=== PATIENT | female | born 1995 | race Caucasian/White ===

== ENCOUNTER 2019-05-14 11:10 | Emergency (ER) | payer MEDICAID ==
--- NOTE | 2019-05-14 11:11 | EDM.PDOC ---
ED HPI GENERAL MEDICAL PROBLEM - General Chief Complaint: Headache Stated Complaint: Recurrent migraine headache, recurrent syncopal episodes Time Seen by Provider: 05/14/19 11:11 Source of Information: Reports: Patient, Family (Boyfriend, Diego), Other ( [facility]). Denies: Old Records (No [facility] records available) History Limitations: Reports: Altered Mental Status - History of Present Illness INITIAL COMMENTS - FREE TEXT/NARRATIVE: The patient drove herself to this facility via private automobile for evaluation of an apparent syncopal episode, which occurred at home earlier this morning, although patient is a somewhat poor historian secondary to her current mental and emotional dental status. She apparently initially tried to be seen in the [facility] in [place] earlier this morning at about 10:30 a.m., although clinic was closed at that time. The patient was entering this facility at about 11 AM when she had another true witnessed syncopal episode with the patient caught by one of our staff in the waiting room with no fall or significant injury to this point. The patient does have a known history of chronic intermittent migraine headaches with patient stating that her initial headache was throbbing in nature mostly in the right frontal and temporal region and associated with bilateral retro-ocular discomfort with this headache starting about 2 days ago. Note that the patient did take 2000 mg of Tylenol at 9 AM yesterday with no other medications since that time. She also has an apparent history of recurrent syncope and chronic dizziness of unknown etiology , however note Mnire's disease history as below. She has not had a workup for her chronic headaches or recurrent syncope to this point, although a complete history was not possible during today's evaluation secondary to her symptoms, hearing loss, etc. The patient denies any chest pain/pressure, heart flutter, dizziness, orthostasis, orthopnea, diaphoresis, paresthesias, recent decreased exercise tolerance, or any other anginal-type symptoms. No recent history of abdominal pain, heartburn, nausea, diarrhea, melena, gross hematochezia, or any food intolerance, including fatty foods, etc.. The patient also denies any recent fever, cough, wheezing, dyspnea, etc.. Onset: Unknown/Unsure Onset Date: 05/14/19 Onset Time: 11:00 Duration: Improving Location: Reports: Head (Right-sided headache as above). Denies: Face, Neck, Chest, Abdomen, Back, Upper Extremity, Left, Upper Extremity, Right, Radiates to Quality: Reports: Same as Previous Episode, Throbbing Severity: Moderate Improves with: Reports: None Worsens with: Reports: None Context: Reports: Other (As above). Denies: Sick Contact, Trauma Associated Symptoms: Reports: Confusion (Initial), Headaches, Malaise, Syncope, Weakness (Left-sided as below). Denies: Chest Pain, Cough, Diaphoresis, Fever/ Chills, Loss of Appetite, Nausea/Vomiting, Rash, Seizure, Shortness of Breath Treatments GLASS SILVERER: Reports: Acetaminophen (Yesterday as above) Right Frontal Headache Pain Score (Numeric/FACES): 8 - Related Data Allergies Allergy/AdvReac Type Severity Reaction Status Date / Time No Known Allergies Allergy Verified 05/14/19 11:52 Past Medical History HEENT History: Reports: Hard of Hearing, Other (See Below) Other HEENT History: Left-sided Mnire's disease and hearing loss requiring cochlear implant. Cardiovascular History: Reports: Syncope, Other (See Below). Denies: Hypertension Other Cardiovascular History: Recurrent syncope of unknown etiology with no workup to this point. VOCATIONAL EDUCATION PROFESSIONAL History: Reports: , Spontaneous : 2 Para: 1 LMP (Approximate): Other (See Below) Other VOCATIONAL EDUCATION PROFESSIONAL History: Three-month premature delivery by normal spontaneous vaginal delivery. Previous history of spontaneous SAB at about 10 weeks gestation with no D&C required. No problems with hypertension, hyperglycemia, etc. during her pregnancies. Neurological History: Reports: Headaches, Chronic, Migraines, Vertigo, Other ( See Below). Denies: Seizure Other Neuro History: Mnire's disease with left-sided hearing loss and chronic vertigo and dizziness Psychiatric History: Reports: Anxiety, Depression, Suicidal Ideation, Other ( See Below). Denies: Psych Hospitalization(s), Suicide Attempt Other Psychiatric History: History of suicidal ideation in the distant past with no inpatient treatment required. Endocrine/Metabolic History: Reports: Other (See Below). Denies: Diabetes, Gestational, Diabetes, Type I, Diabetes, Type II, Diabetes Mellitus, Type 3c, Hypothyroidism, IDDM - Past Surgical History Head Surgeries/Procedures: Reports: Other (See Below) Other Head Surgeries/Procedures: Cochlear implant as below HEENT Surgical History: Reports: Other (See Below) Other HEENT Surgeries/Procedures: Left-sided Sided cochlear implant Neurological Surgical History: Reports: Other (See Below) Other Neurological Surgeries/Procedures: Cochlear implant as above - History Comment History Comment: Secondary to current symptoms, initial confusion, etc. limited history and physical was available. Social & Family History - Family History HEENT: Reports: Hearing Impairment, Other (See Below) Other HEENT Family History: Son with possible congenital hearing loss with history of 3 month premature delivery. - Tobacco Use Smoking Status *Q: Current Every Day Smoker Tobacco Use Within Last Twelve Months: Cigarettes Years of Tobacco use: 7 Packs/Tins Daily: 1 Used Tobacco, but Quit: No Smoking Cessation Information Provided To Patient: No (Patient transferred) Smoking Cessation Information Given Comment: Significant other Second Hand Smoke Exposure: Yes Second Hand Smoke Education Provided: No (Patient transferred) - Alcohol Use Alcohol Use History: Yes Days Per Week of Alcohol Use: 7 Number of Drinks Per Day: 1 Number of Drinks Per Day Comment: Usually mixed drinks. No previous DWIs, problems with alcohol abuse, etc. Total Drinks Per Week: 7 Alcohol Use in Last Twelve Months: Yes Alcohol Use Frequency: Daily - Recreational Drug Use Recreational Drug Use: No Drug Use in Last 12 Months: No Recreational Drug Type: Denies: Amphetamines (Speed), Cocaine, Heroin, Inhalants (Glues, Solvents, Aerosols), LSD (Acid), Marijuana/Hashish, Methamphetamine, Morphine, Oxycodone - Living Situation & Occupation Living situation: Reports: with Significant Other (Significant other and her son ) ED ROS GENERAL - Review of Systems Review Of Systems: ROS reveals no pertinent complaints other than HPI. - Physical Exam Exam: See Below Exam Limited By: Altered Mental Status General Appearance: No Apparent Distress, Anxious (Moderate), Lethargic Eye Exam: Bilateral Eye: EOMI, Normal Fundi, Normal Inspection (No nystagmus), PERRL Ears: Normal Canal, Normal TMs, Hearing Loss (Severe bilateral hearing loss left greater than right with left-sided cochlear implant) Nose: Normal Inspection, Normal Mucosa, No Blood Throat/Mouth: Normal Inspection, Normal Lips, Normal Teeth, Normal Gums, Normal Oropharynx, Normal Voice, No Airway Compromise. No: Dysphagia, Evidence of Tongue Biting, Perioral Cyanosis Head Exam: Atraumatic, Normocephalic. No: Facial Swelling, Facial Tenderness, Sinus Tenderness Neck: Normal Inspection, Supple, Non-Tender, Full Range of Motion. No: Carotid Bruit, Lymphadenopathy (L), Lymphadenopathy (R), Thyromegaly Respiratory/Chest: No Respiratory Distress, Lungs Clear, Normal Breath Sounds, No Accessory Muscle Use, Chest Non-Tender. No: Pleural Rub, Retractions Cardiovascular: Normal Peripheral Pulses, Regular Rate, Rhythm, No Edema, No Gallop, No JVD, No Murmur, No Rub. No: Gallop/S3, Gallop/S4, Friction Rub GI/Abdominal: Normal Bowel Sounds, Soft, Non-Tender, No Organomegaly, No Distention, No Abnormal Bruit, No Mass, Pelvis Stable. No: Guarding (Female) Exam: Deferred Rectal (Female) Exam: Deferred Neuro Exam (Abbreviated): Confused (Initial moderate confusion with patient oriented only to the year and her name with no confusion at time of transfer), Disoriented (As above), Slow to Respond, Sensory/Motor Deficit (Mild to moderate possible left sided arm and leg weakness with difficulty with grocery caddy, dorsiflexion, etc. with negative Babinski's and no facial involvement). No: Abnormal Reflexes (Negative Babinski's) Back Exam: Normal Inspection, Full Range of Motion. No: CVA Tenderness (L), CVA Tenderness (R), Muscle Spasm Extremities: Normal Inspection. No: Anthony's Sign Psychiatric: Anxious (Moderate), Depressed Mood (Moderate with adequate eye contact), Flat Affect. No: Tearful Skin Exam: Warm, Dry, Intact, Normal Color, No Rash. No: Diaphoretic, Ecchymosis, Petechiae, Wound/Incision EKG INTERPRETATION EKG Date: 05/14/19 Time: 11:20 Rhythm: NSR Rate (Beats/Min): 78 [place]: Normal P-Wave: Present QRS: Normal (0.09 seconds) ST-T: Normal (Nonspecific ST changes in leads 3 and aVF with T-wave inversion in lead V1) QT: Normal AR/PQ Interval: 0.17 seconds with pulmonary hypertension by EKG Comparison: NA - No Prior EKG EKG Interpretation Comments: 1. No acute ischemic changes 2. Pulmonary hypertension by EKG. Course - Vital Signs Last Recorded V/S: See Stroke Code Sheet - Orders/Labs/Meds Orders: Active Orders 24 hr Category Date Time Status Blood Glucose Check, Bedside [RC] STAT Care 05/14/19 11:12 Active Cardiac Monitoring [RC] STAT Care 05/14/19 11:12 Active EKG Documentation Completion [RC] ASDIRECTED Care 05/14/19 11:12 Active NIH Stroke Scale [RC] ASDIRECTED Care 05/14/19 11:12 Active Oxygen Therapy, ED [RC] CONTINUOUS Care 05/14/19 11:12 Active Peripheral IV Care [RC] . DIRECTED Care 05/14/19 11:12 Active Pulse Oximetry [RC] CONTINUOUS Care 05/14/19 11:12 Active Up With Assistance [RC] ASDIRECTED Care 05/14/19 11:12 Active Vital Signs [RC] PFP Care 05/14/19 11:12 Active Nothing per Oral Now Diet [DIET] Diet 05/14/19 Breakfast Active Chest 1V Frontal [CR] Stat Exams 05/14/19 11:12 Taken Head wo Cont [CT] Stat Exams 05/14/19 11:12 Taken DRUG SCREEN, URINE [URCHEM] Stat Lab 05/14/19 11:16 Ordered PROLACTIN [REF] Stat Lab 05/14/19 11:20 Received UA W/MICROSCOPIC [URIN] Stat Lab 05/14/19 11:12 Ordered Sodium Chloride 0.9% [Saline Flush] Med 05/14/19 11:12 Active 10 ml FLUSH ASDIRECTED PRN Obtain Past Medical Record [OM.PC] Stat Oth 05/14/19 11:12 Active Peripheral IV Insertion Adult [OM.PC] Stat Oth 05/14/19 11:12 Ordered Resuscitation Status Stat Resus Stat 05/14/19 11:12 Ordered Medication Orders Sodium Chloride (Saline Flush) 10 ml FLUSH ASDIRECTED PRN PRN Reason: Keep Vein Open Labs: Laboratory Tests 05/14/19 05/14/19 05/14/19 Range/Units 11:20 11:20 11:20 WBC 7.4 (4.0-10.2) K/uL RBC 4.72 (3.77-5.09) M/uL Hgb 14.1 (11.7-15.5) g/dL Hct 41.9 (34.0-46.0) % MCV 88.8 (84.0-98.0) fL MCH 29.9 (28.2-33.3) pg MCHC 33.7 (31.7-36.0) g/dL RDW 12.5 (11.2-14.1) % Plt Count 206 (150-350) K/uL Neut % (Auto) 63.0 (45.0-80.0) % Lymph % (Auto) 26.5 (10.0-50.0) % Carter % (Auto) 7.2 (2.0-14.0) % Eos % (Auto) 2.4 (0.0-5.0) % Baso % (Auto) 0.9 (0.0-2.0) % Neut # (Auto) 4.67 (1.40-7.00) K/uL Lymph # (Auto) 1.96 (0.50-3.50) K/uL Carter # (Auto) 0.53 (0.00-1.00) K/uL Eos # (Auto) 0.18 (0.00-0.50) K/uL Baso # (Auto) 0.07 (0.00-0.20) K/uL PT 10.7 (9.5-12.0) SEC INR 1.0 APTT 27.7 (21.0-31.3) SEC D-Dimer, Quantitative < 100 (0-400) ng/mL Sodium (136-145) mmol/L Potassium (3.5-5.1) mmol/L Chloride (98-107) mmol/L Carbon Dioxide (21.0-32.0) mmol/L BUN (7-18) mg/dL Creatinine (0.51-1.17) mg/dL Est Cr Clr Drug Dosing Estimated GFR (MDRD) mL/min Glucose (74-106) mg/dL Lactic Acid (0.4-2.0) mmol/L Uric Acid (2.6-7.2) mg/dL Calcium (8.5-10.1) mg/dL Magnesium (1.8-2.4) mg/dL Total Bilirubin (0.2-1.0) mg/dL AST (15-37) U/L ALT (12-78) U/L Alkaline Phosphatase (46-116) IU/L Creatine Kinase (26-308) U/L Creatine Kinase Index (0.0-2.5) % CK-MB (CK-2) (0.00-3.60) ng/mL Troponin I (0.000-0.056) ng/mL NT-Pro-B Natriuret Pep (0-125) pg/mL Total Protein (6.4-8.2) g/dL Albumin (3.4-5.0) g/dL TSH, Ultra Sensitive (0.358-3.740) mIU/mL HCG, Qual (NEGATIVE) Ethyl Alcohol (0.000-0.080) g/dL 05/14/19 05/14/19 05/14/19 Range/Units 11:20 11:20 11:20 WBC (4.0-10.2) K/uL RBC (3.77-5.09) M/uL Hgb (11.7-15.5) g/dL Hct (34.0-46.0) % MCV (84.0-98.0) fL MCH (28.2-33.3) pg MCHC (31.7-36.0) g/dL RDW (11.2-14.1) % Plt Count (150-350) K/uL Neut % (Auto) (45.0-80.0) % Lymph % (Auto) (10.0-50.0) % Carter % (Auto) (2.0-14.0) % Eos % (Auto) (0.0-5.0) % Baso % (Auto) (0.0-2.0) % Neut # (Auto) (1.40-7.00) K/uL Lymph # (Auto) (0.50-3.50) K/uL Carter # (Auto) (0.00-1.00) K/uL Eos # (Auto) (0.00-0.50) K/uL Baso # (Auto) (0.00-0.20) K/uL PT (9.5-12.0) SEC INR APTT (21.0-31.3) SEC D-Dimer, Quantitative (0-400) ng/mL Sodium 141 (136-145) mmol/L Potassium 3.6 (3.5-5.1) mmol/L Chloride 105 (98-107) mmol/L Carbon Dioxide 24.7 (21.0-32.0) mmol/L BUN 13 (7-18) mg/dL Creatinine 0.73 (0.51-1.17) mg/dL Est Cr Clr Drug Dosing TNP Estimated GFR (MDRD) > 60 mL/min Glucose 110 H (74-106) mg/dL Lactic Acid 1.5 (0.4-2.0) mmol/L Uric Acid 3.9 (2.6-7.2) mg/dL Calcium 8.7 (8.5-10.1) mg/dL Magnesium 1.9 (1.8-2.4) mg/dL Total Bilirubin 0.5 (0.2-1.0) mg/dL AST 18 (15-37) U/L ALT 17 (12-78) U/L Alkaline Phosphatase 84 (46-116) IU/L Creatine Kinase 54 (26-308) U/L Creatine Kinase Index 0.9 (0.0-2.5) % CK-MB (CK-2) 0.50 (0.00-3.60) ng/mL Troponin I 0.000 (0.000-0.056) ng/mL NT-Pro-B Natriuret Pep 71 (0-125) pg/mL Total Protein 7.9 (6.4-8.2) g/dL Albumin 4.3 (3.4-5.0) g/dL TSH, Ultra Sensitive 2.892 (0.358-3.740) mIU/mL HCG, Qual Negative (NEGATIVE) Ethyl Alcohol 0.000 (0.000-0.080) g/dL Stat Accu-Chek on arrival at 11: 10 AM was normal at 80 mg percent. Prolactin level drawn with results pending. Meds: Medications Generic Name Dose Route Start Last Admin Trade Name Freq PRN Reason Stop Dose Admin Sodium Chloride 10 ml 05/14/19 11:12 Saline Flush FLUSH ASDIRECTED PRN Keep Vein Open Discontinued Medications Generic Name Dose Route Start Last Admin Trade Name Freq PRN Reason Stop Dose Admin Famotidine 40 mg 05/14/19 11:12 Pepcid IVPUSH 05/14/19 11:13 ONETIME ONE Lactated Ringer's 1,000 mls @ 999 mls/hr 05/14/19 12:19 Ringers, Lactated IV 05/14/19 13:19 .BOLUS ONE Metoclopramide HCl 10 mg 05/14/19 11:52 Reglan IVPUSH 05/14/19 11:53 ONETIME ONE - Radiology Interpretation Free Text/Narrative:: telemetry monitor shows normal sinus rhythm with heart rate in the 60s to 90s with no ectopy or arrhythmia, Chest x-ray, portable, shows no cardiomegaly, CHF, pulmonary infiltrates, pneumothorax, etc. Incidental bilateral nipple studs. Official x-ray report from [facility] shows normal CT scan of the head with no acute changes, although evaluation is suboptimal secondary to patient's left cochlear implant. Previously requested stat verbal report from [place] radiology department was received. Departure - Departure Time of Disposition: 13:00 Disposition: DC/Tfer to Acute Hospital 02 Condition: Fair Clinical Impression: Mixed anxiety depressive disorder, Tobacco abuse counseling Syncope Qualifiers: Syncope type: unspecified Qualified Code(s): R55 - Syncope and collapse Migraine headache Qualifiers: Migraine type: without aura Status migrainosus presence: without status migrainosus Intractability: not intractable Qualified Code(s): G43.009 - Migraine without aura, not intractable, without status migrainosus Mnire's disease Qualifiers: Laterality: bilateral Qualified Code(s): H81.03 - Meniere's disease, bilateral - Discharge Information *PRESCRIPTION DRUG MONITORING PROGRAM REVIEWED*: Not Applicable *COPY OF PRESCRIPTION DRUG MONITORING REPORT IN PATIENT RONALD: Not Applicable Forms: ED Department Discharge, Interfacility Transfer EMTALA - Problem List & Annotations (1) Migraine headache SNOMED Code(s): 70326283 Code(s): G43.909 - MIGRAINE, UNSP, NOT INTRACTABLE, WITHOUT STATUS MIGRAINOSUS Status: Acute Priority: High Annotation/Comment:: Recurrent migraine headaches with probable migraine equivalent. Note secondary to initial left-sided hemiparesis, sedation, and confusion a stroke code was called with CT scan results as above. Note that patient's neurological exam was completely normal at time of patient's transfer. Telephone consultation at 12:[address] Moncada, neurologist at [facility] in [place], who does accept the patient for further evaluation and treatment, with no further treatment recommendations given. He is requesting that no aspirin be given at this time and that the patient initially be evaluated in their emergency room with plan of probable MRI despite cochlear implant versus contrast CT of the head and neck at time of patient's arrival to their facility. He does agree to contact the emergency room physician for me. Note that various treatment options were given to the patient, who is requesting transfer to [place]. Ambulance transfer with international sourcing manager accompaniment. Telephone consultation at 12:00 hours with the patient's significant other, Diego, updating him on patient's care and planned transfer as above. Note borderline mild hypotension at the end of emergency room care with patient initiated on a lactated Ringer's IV bolus, 1 L, with 100 mils per hour to be continued thereafter by the international sourcing manager. Qualifiers: Migraine type: without aura Status migrainosus presence: without status migrainosus Intractability: not intractable Qualified Code(s): G43.009 - Migraine without aura, not intractable, without status migrainosus (2) Syncope SNOMED Code(s): 671898149 Code(s): R55 - SYNCOPE AND COLLAPSE Status: Acute Priority: High Onset Date: 05/14/19 Annotation/Comment:: History of recurrent syncope as above. Workup recommended/should be conducted by accepting providers. Qualifiers: Syncope type: unspecified Qualified Code(s): R55 - Syncope and collapse (3) Mnire's disease SNOMED Code(s): 27196794 Code(s): H81.09 - MENIERE'S DISEASE, UNSPECIFIED EAR Status: Chronic Priority: High Annotation/Comment:: Note current significant hearing loss including necessary left sided cochlear implant. ENT consultation by accepting providers depending on her clinical course. Qualifiers: Laterality: bilateral Qualified Code(s): H81.03 - Meniere's disease, bilateral (4) Mixed anxiety depressive disorder SNOMED Code(s): 785464699 Code(s): F41.8 - OTHER SPECIFIED ANXIETY DISORDERS Status: Chronic Priority: High Annotation/Comment:: Poor control based on today's evaluation. Psychiatric consultation may be advisable by accepting providers. Patient denies any suicidal ideation at this time. (5) Tobacco abuse counseling SNOMED Code(s): 115306722, 815577201, 827633577 Code(s): Z71.6 - TOBACCO ABUSE COUNSELING Status: Chronic Priority: Medium Annotation/Comment:: Tobacco cessation strongly advisable both by the patient and her significant other. Tobacco cessation information should be provided at hospital discharge by accepting providers. - Problem List Review Problem List Initiated/Reviewed/Updated: Yes - My Orders Last 24 Hours: My Active Orders 05/14/19 11:12 Blood Glucose Check, Bedside [RC] STAT Cardiac Monitoring [RC] STAT EKG Documentation Completion [RC] ASDIRECTED NIH Stroke Scale [RC] ASDIRECTED Oxygen Therapy, ED [RC] CONTINUOUS Peripheral IV Care [RC] . DIRECTED Pulse Oximetry [RC] CONTINUOUS Up With Assistance [RC] ASDIRECTED Vital Signs [RC] PFP Chest 1V Frontal [CR] Stat Head wo Cont [CT] Stat UA W/MICROSCOPIC [URIN] Stat Sodium Chloride 0.9% [Saline Flush] 10 ml FLUSH ASDIRECTED PRN Obtain Past Medical Record [OM.PC] Stat Peripheral IV Insertion Adult [OM.PC] Stat Resuscitation Status Stat 05/14/19 11:16 DRUG SCREEN, URINE [URCHEM] Stat 05/14/19 11:20 PROLACTIN [REF] Stat 05/14/19 Breakfast Nothing per Oral Now Diet [DIET] - Assessment/Plan Last 24 Hours: My Active Orders 05/14/19 11:12 Blood Glucose Check, Bedside [RC] STAT Cardiac Monitoring [RC] STAT EKG Documentation Completion [RC] ASDIRECTED NIH Stroke Scale [RC] ASDIRECTED Oxygen Therapy, ED [RC] CONTINUOUS Peripheral IV Care [RC] . DIRECTED Pulse Oximetry [RC] CONTINUOUS Up With Assistance [RC] ASDIRECTED Vital Signs [RC] PFP Chest 1V Frontal [CR] Stat Head wo Cont [CT] Stat UA W/MICROSCOPIC [URIN] Stat Sodium Chloride 0.9% [Saline Flush] 10 ml FLUSH ASDIRECTED PRN Obtain Past Medical Record [OM.PC] Stat Peripheral IV Insertion Adult [OM.PC] Stat Resuscitation Status Stat 05/14/19 11:16 DRUG SCREEN, URINE [URCHEM] Stat 05/14/19 11:20 PROLACTIN [REF] Stat 05/14/19 Breakfast Nothing per Oral Now Diet [DIET] Assessment:: As above Plan: As above. Extensive precautions were given to the patient and her significant other, who are in agreement with the treatment plan. Ambulance transfer with international sourcing manager accompaniment.
[2019-05-14] MEDS ORDERED: Famotidine 20 MG/2 ML SDV IVPUSH ONE (11:12)
[2019-05-14] MEDS ORDERED: Sodium Chloride 0.9% 10 ML Syringe FLUSH PRN (11:12)
[2019-05-14] MEDS ORDERED: Metoclopramide 10 MG/2 ML SDV IVPUSH ONE (11:52)
[2019-05-14 12:03] LABS: CHLORIDE,CL 105 mmol/L (98-107); SODIUM,NA 141 mmol/L (136-145)
[2019-05-14] MEDS ORDERED: Lactated Ringers 1,000 ML IV ONE (12:19)
== END 2019-05-14 13:00 ==
LOC: LL.ED 11:10
DX: G43.009 Migraine without aura, not intractable, without status migrainosus (principal); R55 Syncope and collapse; F41.8 Other specified anxiety disorders; H81.03 Meniere's disease, bilateral; H91.92 Unspecified hearing loss, left ear; F17.210 Nicotine dependence, cigarettes, uncomplicated; Z71.6 Tobacco abuse counseling
CPT/HCPCS: 36415; 70450; 71045; 80053; 82550; 82553; 83605; 83735; 83880; 84146; 84443; 84484; 84550; 84703; 85025; 85379; 85610; 85730; 93005; 96361; 96374; 96375; 99285-25; G0480; J2765; J3490; J7120

== ENCOUNTER 2024-02-15 16:17 | Observation (INO) | payer SELFPAY ==
[2024-02-15] MEDS ORDERED: Sodium Chloride 0.9% 10 ML Syringe FLUSH PRN (16:39)
[2024-02-15 16:58] LABS: BASOPHILS ABSOLUTE AUTO 0.06 K/uL (0.00-0.20); BASOPHILS PERCENT AUTO 0.8 % (0.0-2.0); EOSINOPHILS ABSOLUTE AUTO 0.16 K/uL (0.00-0.50); EOSINOPHILS PERCENT AUTO 2.1 % (0.0-5.0); HEMATOCRIT 42.4 % (34.0-46.0); HEMOGLOBIN 14.1 g/dL (11.7-15.5); LYMPHOCYTES ABSOLUTE AUTO 1.94 K/uL (0.50-3.50); LYMPHOCYTES PERCENT AUTO 25.2 % (10.0-50.0); MEAN CORPUSCULAR HEMOGLOBIN 30.7 pg (28.2-33.3); MEAN CORPUSCULAR HGB CONC 33.3 g/dL (31.7-36.0); MEAN CORPUSCULAR VOLUME 92.4 fL (84.0-98.0); MONOCYTES PERCENT AUTO 6.5 % (2.0-14.0); NEUTROPHILS ABSOLUTE AUTO 5.04 K/uL (1.40-7.00); NEUTROPHILS PERCENT AUTO 65.4 % (45.0-80.0); PLATELET COUNT,PLT 236 K/uL (150-350); RED BLOOD CELL COUNT 4.59 M/uL (3.77-5.09); RED CELL DISTRIBUTION WIDTH 12.4 % (11.2-14.1); WHITE BLOOD CELL COUNT,WBC 7.7 K/uL (4.0-10.2)
[2024-02-15 17:19] LABS: ALANINE AMINOTRANSFERASE,ALT 28 U/L (12-78); ALBUMIN 3.9 g/dL (3.4-5.0); ALKALINE PHOSPHATASE 62 IU/L (46-116); ANION GAP 3.9 meq/L (7-15); ASPARTATE AMNIOTRANSFERASE,AST 21 U/L (15-37); BILIRUBIN TOTAL 0.8 mg/dL (0.2-1.0); BLOOD UREA NITROGEN,BUN 12 mg/dL (7-18); CALCIUM 8.7 mg/dL (8.5-10.1); CARBON DIOXIDE,CO2 31.1 mmol/L (21.0-32.0); CHLORIDE,CL 105 mmol/L (98-107); CREATININE 0.85 mg/dL (0.51-1.17); GLUCOSE RANDOM 90 mg/dL (70-99); MAGNESIUM 1.9 mg/dL (1.8-2.4); POTASSIUM,K 3.8 mmol/L (3.5-5.1); PROTEIN TOTAL,TP 7.4 g/dL (6.4-8.2); SODIUM,NA 140 mmol/L (136-145)
[2024-02-15 17:20] LABS: ESTIMATED GFR 94 mL/min (>=60)
[2024-02-15] MEDS: Acetaminophen 500 MG Tab PO PRN (18:05)
[2024-02-15] MEDS: Ondansetron 4 MG Tab.DIS PO PRN (18:05)
[2024-02-15] MEDS ORDERED: Acetaminophen 325 MG Tab PO PRN (19:09)
[2024-02-15] MEDS: traMADol 50 MG Tab PO PRN (21:39)
[2024-02-16 07:09] LABS: APPEARANCE,URINE CLEAR; BILIRUBIN,URINE NEGATIVE (NEGATIVE); COLOR,URINE YELLOW; GLUCOSE,URINE NEGATIVE (NEGATIVE); KETONES,URINE NEGATIVE (NEGATIVE); LEUKOCYTE ESTERASE,URINE NEGATIVE (NEGATIVE); NITRITE,URINE NEGATIVE (NEGATIVE); OCCULT BLOOD,URINE NEGATIVE (NEGATIVE); PROTEIN,URINE NEGATIVE (NEGATIVE); UROBILINOGEN,URINE 0.2 E.U./dL (0.2-1.0)
[2024-02-16] MEDS ORDERED: Escitalopram 10 MG Tab PO SCH (08:00)
== END 2024-02-15 22:45 | disposition home or self-care (01) ==
LOC: LL.ED 16:17 → UNDOADMOB 17:03 → LL.MS 17:03 → UNDODISOB 22:45
PROVIDERS: ADMIT Emergency Medicine; ATTEND Emergency Medicine
DX: S00.03XA Contusion of scalp, initial encounter (principal); R55 Syncope and collapse; Z79.899 Other long term (current) drug therapy; W19.XXXA Unspecified fall, initial encounter; Y92.002 Bathroom of unspecified non-institutional (private) residence as the place of occurrence of the external cause
CPT/HCPCS: 36415; 70450; 72125; 80053; 81003; 83735; 85025; 99285; A9270-GY